=== PATIENT | male | born 1980 | race Caucasian/White ===

== ENCOUNTER 2018-05-14 09:48 | Emergency (ER) | payer MEDICAID, MEDICARE ==
[~2018-05-14] VITALS: Ht 193 cm; Wt 106.7 kg
[2018-05-14] MEDS ORDERED: KETOROLAC 30 MG/1 ML ONE (10:17)
[2018-05-14] MEDS ORDERED: KETOROLAC 30 MG/1 ML IM ONE (10:30)
[2018-05-14 11:18] VITALS: BP 122/61
== END 2018-05-14 11:20 | disposition home or self-care (01) ==
LOC: ED 11:13
DX: S46.012A Strain of muscle(s) and tendon(s) of the rotator cuff of left shoulder, initial encounter (principal); Z87.891 Personal history of nicotine dependence; X58.XXXA Exposure to other specified factors, initial encounter; Y93.89 Activity, other specified; Y92.89 Other specified places as the place of occurrence of the external cause; Y99.8 Other external cause status
CPT/HCPCS: 73030; 96372; 99283; J1885

== ENCOUNTER 2018-06-04 10:15 | Emergency (ER) | payer MEDICAID, MEDICARE ==
[~2018-06-04] VITALS: Ht 185.4 cm; Wt 108.6 kg
[2018-06-04 10:33] VITALS: BP 118/80
[2018-06-04] MEDS ORDERED: IBUPROFEN 200 MG TABLET PO ONE (11:00)
[2018-06-04] MEDS ORDERED: IBUPROFEN 200 MG TABLET ONE (11:10)
== END 2018-06-04 11:34 | disposition home or self-care (01) ==
LOC: ED 11:02
DX: S50.11XA Contusion of right forearm, initial encounter (principal); Z87.891 Personal history of nicotine dependence; W22.8XXA Striking against or struck by other objects, initial encounter; Y93.89 Activity, other specified; Y92.009 Unspecified place in unspecified non-institutional (private) residence as the place of occurrence of the external cause; Y99.8 Other external cause status
CPT/HCPCS: 99283

== ENCOUNTER 2018-08-31 09:46 | Emergency (ER) | payer MEDICARE ==
[~2018-08-31] VITALS: Ht 193 cm; Wt 103.9 kg
[2018-08-31 10:20] LABS: BASOPHILS # (AUTO) 0.05 x10^3/uL (0-0.1); BASOPHILS % (AUTO) 1 % (0-1); EOSINOPHILS % (AUTO) 4 % (1-7); LYMPHOCYTES # (AUTO) 3.16 x10^3/uL (1-3.4); LYMPHOCYTES % (AUTO) 38 % (22-44); MD NO; MEAN CORPUSCULAR HEMOGLOBIN 30.2 pg (27.5-34.5); MEAN CORPUSCULAR HGB CONC 34.3 g/dL (33.2-36.2); MEAN CORPUSCULAR VOLUME 87.9 fL (81-97); MEAN PLATELET VOLUME 8.5 fL (7.4-10.4); MONOCYTES # (AUTO) 0.61 x10^3/uL (0.2-0.8); MONOCYTES % (AUTO) 8 % (2-9); NEUTROPHILS % (AUTO) 50 % (42-75); PLATELET COUNT 250 x10^3/uL (130-400); RED BLOOD COUNT 5.34 x10^6/uL (4.38-5.82); RED CELL DISTRIBUTION WIDTH 14.5 % (9.4-14.8)
[2018-08-31 10:29] LABS: ALBUMIN 3.8 g/dL (3.4-5.0); ANION GAP 5 mmol/L (5-15); CALCIUM 9.1 mg/dL (8.5-10.1); CHLORIDE 109 mmol/L (98-107); CREATININE 0.86 mg/dL (0.7-1.3)
[2018-08-31 10:35] LABS: ALANINE AMINOTRANSFERASE 29 U/L (12-78); ALKALINE PHOSPHATASE 79 U/L (45-117); BILIRUBIN,TOTAL 0.7 mg/dL (0.2-1.0); TOTAL PROTEIN 7.6 g/dL (6.4-8.2)
--- NOTE | 2018-08-31 10:51 | NUR ---
pt ambulatory with steady gait to room from lobby at this time. pt requesting to use bathroom. pt given ua cup.
--- NOTE | 2018-08-31 11:01 | NUR ---
37 y/o male presents to ed with /co "I'VE HAD SOME ABDOMINAL PAIN FOR ABOUT 10 DAYS. IT'S BEEN ON AND OFF. IT WENT AWAY, THEN CAME BACK. THE LAST FEW DAYS I'VE THROWN UP AND KEPT WAKING UP. IT'S LIKE A STABBING PAIN. THERE HASN'T BEEN ANY BLOOD IN MY VOMIT." NO ACUTE DISTRESS NOTED. NO C/O D, TRAUMA, SYNCOPE, CP, SOB. P[T PLACED ON CONT PULSE OX,NIBP
[2018-08-31] MEDS ORDERED: SODIUM CHLORIDE FLUSH 10ML SYR IVF ONE (11:30)
--- NOTE | 2018-08-31 11:34 | NUR ---
PIV ESTABLISHED. PT TOLERATED WITH NO COMPLATIONS. PT RESTING ON GURNEY. NO ACUTE DISTRESS NOTED. NO NEEDS REQUESTED AT THIS TIME.
[2018-08-31 11:35] VITALS: BP 151/95
--- NOTE | 2018-08-31 11:36 | NUR ---
NO C/O OF PAIN AT THIS TIME.
--- NOTE | 2018-08-31 11:42 | NUR ---
UA SENT TO LAB
[2018-08-31 12:01] LABS: MICROSCOPIC NOT IND
[2018-08-31 12:05] LABS: CULTURE INDICATED? NO
[2018-08-31] MEDS ORDERED: OMNIPAQUE 350 MG/ML, 100ML BOTTLE ONE (12:08)
--- NOTE | 2018-08-31 12:15 | NUR ---
BREAK RN: PT RETURNS FROM CT, AWAITING RESULTS. NO OTHER NEEDS AT THIS TIME.
== END 2018-08-31 13:03 | disposition home or self-care (01) ==
LOC: ED 12:18
DX: R10.32 Left lower quadrant pain (principal); R11.2 Nausea with vomiting, unspecified; Z87.891 Personal history of nicotine dependence
CPT/HCPCS: 36415; 74177; 80053; 81003; 83690; 85025; 99284; Q9967

== ENCOUNTER 2019-03-31 09:31 | Emergency (ER) | payer MEDICARE ==
[~2019-03-31] VITALS: Ht 193 cm; Wt 94.8 kg
[2019-03-31 10:14] VITALS: BP 120/79
[2019-03-31] MEDS ORDERED: KETOROLAC 30 MG/1 ML IM ONE (10:30)
[2019-03-31] MEDS ORDERED: KETOROLAC 30 MG/1 ML ONE (10:35)
== END 2019-03-31 11:32 | disposition home or self-care (01) ==
LOC: ED 11:20
DX: M25.552 Pain in left hip (principal); M25.852 Other specified joint disorders, left hip
CPT/HCPCS: 73502; 96372; 99283; J1885

== ENCOUNTER 2019-05-05 12:32 | Emergency (ER) | payer MEDICARE ==
[~2019-05-05] VITALS: Ht 193 cm; Wt 96.2 kg
[2019-05-05 12:35] VITALS: BP 142/82
--- NOTE | 2019-05-05 14:36 | NUR ---
CALLED NO ANSWER
--- NOTE | 2019-05-05 14:47 | NUR ---
CALLED NO ANSWER FROM LOBBY
--- NOTE | 2019-05-05 15:37 | NUR ---
called no answer x 3
== END 2019-05-05 16:13 ==
LOC: ED 16:00
DX: M79.602 Pain in left arm (principal); M79.89 Other specified soft tissue disorders; Z53.21 Procedure and treatment not carried out due to patient leaving prior to being seen by health care provider

== ENCOUNTER 2019-06-04 21:36 | Emergency (ER) | payer MEDICARE ==
[~2019-06-04] VITALS: Ht 193 cm; Wt 98.0 kg
[2019-06-04 21:57] VITALS: BP 134/88
--- NOTE | 2019-06-04 22:13 | NUR ---
BUS PASSES GIVEN FOR PT AND , AMBULATE OUT DOOR WITH STEADY GAIT AND NAD.
== END 2019-06-04 22:34 | disposition home or self-care (01) ==
LOC: ED 22:28
DX: R25.3 Fasciculation (principal); G43.909 Migraine, unspecified, not intractable, without status migrainosus
CPT/HCPCS: 99283

== ENCOUNTER 2019-11-21 12:58 | Emergency (ER) | payer MEDICARE ==
[~2019-11-21] VITALS: Ht 193 cm; Wt 102.2 kg
--- NOTE | 2019-11-21 13:17 | NUR ---
PT AMBULATORY TO ROOM AT THIS TIME.
[2019-11-21] MEDS ORDERED: ONDANSETRON 2MG/ML, 2ML ONE (14:12)
[2019-11-21] MEDS ORDERED: FAMOTIDINE 20 MG/2 ML ONE (14:13)
--- NOTE | 2019-11-21 14:21 | NUR ---
PT STATES EPIGASTRIC PAIN AND N/V X4 DAYS, STATES WORSE WHEN EATING SPICY FOODS AND MILK. IV STARTED PER ORDERS, PT MEDICATED FOR NAUSEA. PT TO IMAGING.
[2019-11-21] MEDS ORDERED: SODIUM CHLORIDE FLUSH 10ML SYR IVF ONE (14:30)
[2019-11-21] MEDS ORDERED: FAMOTIDINE 20 MG/2 ML IVPush ONE (14:30)
[2019-11-21] MEDS ORDERED: SODIUM CHLORIDE 0.9% 1,000ML IVBOLUS ONE (14:30)
[2019-11-21] MEDS ORDERED: ONDANSETRON 2MG/ML, 2ML IVPush ONE (14:30)
[2019-11-21 14:46] LABS: MICROSCOPIC NOT IND
[2019-11-21 14:57] LABS: ALBUMIN 3.6 g/dL (3.4-5.0); ANION GAP 7 mmol/L (5-15); CALCIUM 8.6 mg/dL (8.5-10.1); CHLORIDE 106 mmol/L (98-107)
[2019-11-21 15:00] LABS: BASOPHILS # (AUTO) 0.04 x10^3/uL (0-0.1); BASOPHILS % (AUTO) 1 % (0-1); CREATININE 0.91 mg/dL (0.7-1.3); EOSINOPHILS # (AUTO) 0.17 x10^3/uL (0-0.4); EOSINOPHILS % (AUTO) 2 % (1-7); LYMPHOCYTES # (AUTO) 3.22 x10^3/uL (1-3.4); LYMPHOCYTES % (AUTO) 44 % (22-44); MD NO; MEAN CORPUSCULAR HEMOGLOBIN 29.5 pg (27.5-34.5); MEAN CORPUSCULAR HGB CONC 33.4 g/dL (33.2-36.2); MEAN CORPUSCULAR VOLUME 88.3 fL (81-97); MEAN PLATELET VOLUME 8.9 fL (7.4-10.4); MONOCYTES % (AUTO) 10 % (2-9); NEUTROPHILS # (AUTO) 3.24 x10^3/uL (1.8-6.8); NEUTROPHILS % (AUTO) 44 % (42-75); PLATELET COUNT 230 x10^3/uL (130-400); RED BLOOD COUNT 5.26 x10^6/uL (4.38-5.82); RED CELL DISTRIBUTION WIDTH 14.9 % (9.4-14.8)
[2019-11-21 15:01] LABS: ALANINE AMINOTRANSFERASE 32 U/L (12-78); ALKALINE PHOSPHATASE 73 U/L (45-117); BILIRUBIN,TOTAL 0.6 mg/dL (0.2-1.0); TOTAL PROTEIN 7.9 g/dL (6.4-8.2)
--- NOTE | 2019-11-21 15:14 | NUR ---
PT GIVEN WATER PER ERMD REQUEST, PT TOLERATING WELL. ERMD AT [facility] FOR ASSESSMENT.
[2019-11-21 15:33] VITALS: BP 136/67
--- NOTE | 2019-11-21 16:07 | NUR ---
Task RN: Patient given discharge instructions and they have confirmed that they understand the instructions. Patient ambulatory with steady gait.
== END 2019-11-21 16:09 | disposition home or self-care (01) ==
LOC: ED 16:00
DX: R10.84 Generalized abdominal pain (principal); R11.2 Nausea with vomiting, unspecified; G43.909 Migraine, unspecified, not intractable, without status migrainosus; Z87.891 Personal history of nicotine dependence
CPT/HCPCS: 36415; 74021; 80053; 81003; 83690; 85025; 96361; 96374; 96375; 99284; J2405; J3490; J7030